=== PATIENT | male | born 1990 | race Caucasian/White ===

== ENCOUNTER 2017-07-06 13:01 | Emergency (ER) | payer OTHER ==
--- NOTE | 2017-07-06 13:27 | ED Physician Documentation ---
PD HPI BACK INJURY - Stated complaint Stated Complaint: BACK PAIN - History obtained from History obtained from: Patient - History of Present Illness Location: Lower Type of injury: Twist. No: Fall Timing - onset: How many weeks ago (1) Timing - duration: Weeks (1) Timing - details: Gradual onset (no particular abrupt injury, hurting with lifting and moving. was improving for couple days with NSAIDs and less active. Had increased pain with increased movement today and back spasmed and "gave out ". No persistent weakness nor numbness.), Still present, Waxing and waning Improved by: Rest Worsened by: Moving, Palpating Associated symptoms: No: Weakness, Numbness, Incontinent of urine Recently seen: Clinic (told to use Ibuprofen) Review of Systems Constitutional: denies: Fever, Chills Nose: denies: Rhinorrhea / runny nose, Congestion Throat: denies: Sore throat Respiratory: denies: Cough GI: denies: Abdominal Pain, Nausea, Vomiting, Diarrhea, Bloody / black stool : denies: Dysuria, Frequency, Hematuria Skin: denies: Rash, Lesions Musculoskeletal: reports: Back pain. denies: Neck pain Neurologic: denies: Focal weakness, Numbness PD PAST MEDICAL HISTORY - Past Surgical History Past Surgical History: No - Present Medications Home Medications: Ambulatory Orders Medication Instructions Recorded Confirmed Dexamethasone [Decadron] 4 mg PO DAILY #5 tablet 07/06/17 Methocarbamol [Robaxin] 500 mg PO Q6H PRN #25 tablet 07/06/17 Tramadol HCl 50 mg PO Q6H PRN #20 tablet 07/06/17 - Allergies Allergies/Adverse Reactions: Allergies Allergy/AdvReac Type Severity Reaction Status Date / Time No Known Drug Allergies Allergy Verified 07/06/17 13:09 - Social History Does the pt smoke?: No Smoking Status: Never smoker Does the pt drink ETOH?: Yes Does the pt have substance abuse?: No - Immunizations Immunizations are current?: Yes - POLST Patient has POLST: No PD ED PE NORMAL - Vitals Vital signs reviewed: Yes - General General: Alert and oriented X 3, No acute distress (but is having some stiffness for movement in low back. ), Well developed/nourished - Abdomen Abdomen: Soft, Non tender - Derm Derm: Normal color, Warm and dry - Neuro Neuro: Alert and oriented X 3, No motor deficit, No sensory deficit, Other ( normal reflexes at knees.) Results - Vitals Vitals: Oxygen O2 Source Room air PD MEDICAL DECISION MAKING - ED course Complexity details: considered differential (low back pain with injury and no red flags on history/exam.), d/w patient Departure - Departure Disposition: 01 Home, Self Care Clinical Impression: Acute lumbar myofascial strain Qualifiers: Encounter type: initial encounter Qualified Code(s): S39.012A - Strain of muscle, fascia and tendon of lower back, initial encounter Clinical Impression: (Ruled Out): Sciatica Condition: Stable Record reviewed to determine appropriate education?: Yes Instructions: ED Low Back Pain Injury Follow-Up: [facility] [Provider Group] Prescriptions: Dexamethasone [Decadron] 4 mg PO DAILY #5 tablet Methocarbamol [Robaxin] 500 mg PO Q6H PRN #25 tablet PRN Reason: Spasms Tramadol HCl 50 mg PO Q6H PRN #20 tablet PRN Reason: Pain Comments: Continue the ibuprofen 400 600 mg 3 times a day. Add Decadron also for inflammation daily for 5 days. Use methocarbamol 3-4 times a day as needed for muscle spasms and stiffness. Heat and gentle stretching are good as well. Mechanical treatment such as massage and chiropractic are also good for the back. Add Tylenol or tramadol as needed for worse pain. Follow-up with her primary care in about 4-5 days. Discharge Date/Time: 07/06/17 14:03
[2017-07-06] MEDS ORDERED: ACETAMINOPHEN 325 MG TABLET PO STA (13:44)
[2017-07-06] MEDS ORDERED: DEXAMETHASONE 10 MG/ML VIAL PO STA (13:44)
[2017-07-06] MEDS ORDERED: IBUPROFEN 400 MG TABLET PO STA (13:44)
[2017-07-06] MEDS ORDERED: DEXAMETHASONE 10 MG/ML VIAL ONE (14:00)
[2017-07-06] MEDS ORDERED: ACETAMINOPHEN 325 MG TABLET PO ONE (14:00)
[2017-07-06] MEDS ORDERED: IBUPROFEN 400 MG TABLET PO ONE (14:00)
[2017-07-06] MEDS ORDERED: CHERRY SYRUP 10 ML UDC PO ONE (14:00)
[2017-07-06 14:05] VITALS: BP 146/94
== END 2017-07-06 14:03 | disposition home or self-care (01) ==
LOC: ED 13:01
DX: S39.012A Strain of muscle, fascia and tendon of lower back, initial encounter (principal); X50.9XXA Other and unspecified overexertion or strenuous movements or postures, initial encounter
CPT/HCPCS: 99282; 99283; A9270